=== PATIENT | female | born 1965 | race Hispanic/Latino ===

== ENCOUNTER 2022-04-03 10:36 | Emergency (ER) | payer BC ==
--- OUTSIDE RECORDS SUMMARY | 2022-04-03 10:42 | XMS REPORT | Continuity of Care Document ---
:1965 Author Organization [facility] t Address [address] [place] [address] Dr. Sheppard. [address] [place] [address] Care Team Providers Name Role Phone Jovan Aranda Primary Care Physician ROQUE CHIN Attending Clinician Unavailable Bui_Q Attending Clinician Unavailable LISETTE BARNARD Attending Clinician Unavailable Pob, [facility] Main Attending Clinician Unavailable Wendy Whyte MD Attending Clinician WENDY WHYTE Attending Clinician Unavailable Doctor Unassigned, [place] Attending Clinician Unavailable Jovan Aranda Attending Clinician Unavailable Kylie Hyde Attending Clinician Unavailable Manoj_Q Admitting Clinician Unavailable Jovan Aranda Admitting Clinician Unavailable Jose Solo Admitting Clinician Unavailable Payers Payer Name Policy Type Policy Number Effective Date Expiration Date S dasha [employer] ADVANTAGE [id number] 2021 HMO/PLUS 00:00:00 [place] [id number] 2021 2022 ADVANTAGE (HMO) 00:00:00 00:00:00 Problems Condition Condition Condition Status Onset Resolution Last Treating Co mments Source Name Details Category Date Date Treatment Clinician Date Immunodefi Immunodefi Problem Active 2021-03 V illage ciency ciency 2-24 Family disorder Disorder 00:00: Practi c 00 e Nontraumat Nontraumat Disease Active 2021-03 Last U T ic ic 03-19 Assessmen Health complete complete 00:00: t & Plan: tear of tear of 00 Formattin rotator rotator g of this cuff, left cuff, left note might be different from the original. The sutures were removed. Incision was clean, dry and intact. Benzoin was applied and Steri-Str ips were applied over the incision. . Ms. Barrera was educated on the signs of infection including increased pain, erythema, tendernes s, and drainage. Ms. Barrera verbalize yovani del cid and will notify us immediate ly if any of the symptoms are noticed Dyslipidem Dyslipidem Problem Active V illage ia ia 6-30 Family 00:00: Practic 00 e Obstructiv Obstructiv Problem Active [facility] illage e sleep e Sleep 4-04 Family apnea Apnea 00:00: Practic syndrome Syndrome 00 e Vitamin D Vitamin D Problem Active [facility] sherron deficiency Deficiency 1-25 Fa alba 00:00: Practic 00 e Diabetes Diabetes Problem Active Mederos ge mellitus Mellitus 1- Family 00:00: Practic 00 e Hypertensi Hypertensi Problem Active [facility] illage ve ve 1-21 Family disorder Disorder 00:00: Practi c 00 e Carotid Carotid Problem Active [place] artery Artery - Family stenosis Stenosis 00:00: Practi c 00 e Rheumatoid Rheumatoid Problem Active [facility] arthritis Arthritis -21 Fami ly 00:00: Practic 00 e Allergies, Adverse Reactions, Alerts Allergy Allergy Status Severity Reaction(s) Onset Inactive Treating Comm ents Source Name Type Date Date Clinician [place] Allergy Active Swelling 2021-03 [facility] n to 08 [facility] substanc 00:00: e 00 atorvast DA [facility] [place] [facility] at[facility]vast DA Active [facility] [place] [facility] Atorvast Allergy Active Swelling [facility] atin to 07-16 Health substanc 00:00: e 00 Lipitor Allergy Active Moderate Swelling [facility] age to Family substanc Practic e e NO KNOWN Drug Active Laquita ALLERGIE Class ity of [facility] Social History Social Habit Start Date Stop Date Quantity Comments Source Exposure to 2022-02-28 2022-03-10 Not sure [facility] SARS-CoV-2 (event) 00:00:00 08:34:00 Alcohol intake 2022-01-22 2022-01-22 Lifetime [facility] 00:00:00 00:00:00 non-drinker (finding) Tobacco use and 2022-01-17 2022-01-17 Smokeless tobacco [facility] exposure 00:00:00 00:00:00 non-user Sex Assigned At [birth year] [facility] 00:00:00 00:00:00 Smoking Status Start Date Stop Date Source Tobacco smoking consumption [facility] Never smoked tobacco [facility] Medications Ordered Filled Start Stop Current Ordering Indication Dosage Frequency Signature Comments Components Source Medication Medication Date Date Medication? Clinician (SIG) Name Name cephalexin 2021-03 Yes [id number] BEGIN THE [facility] (Keflex) 2- DAY AFTER Healt h 500 MG 00:00: SX, 1 capsule 00 CAPSULE PO EVERY 6 HOURS UNTIL COMPLETE inFLIXimab 2021-03 Yes Infuse [facility] (Remicade) 03-19 into a Health 100 MG 13:26: venous injection 38 catheter. rosuvastati 2021-03 Yes rosuvastat UT n (Crestor) 08 in 20 mg Heal th 20 MG 13:14: tablet tablet 30 TAKE ONE (1) TABLET(S) BY MOUTH AT BEDTIME. metFORMIN 2021-03 Yes metformin [facility] (Glucophage -08 500 mg Health ) 500 MG 13:14: tablet tablet 30 TAKE ONE (1) TABLET(S) BY MOUTH ONCE A DAY. amLODIPine 2021-03 Yes amlodipine U T (Norvasc) 5 -08 5 mg Health MG tablet 13:14: tablet 30 TAKE ONE (1) TABLET(S) BY MOUTH AT BEDTIME. sulfaSALAzi 2021-03 Yes sulfasalaz [facility] ne 08 ine 500 mg Health (Azulfidine 13:14: tablet ) 500 MG 30 TAKE ONE tablet (1) TABLET(S) BY MOUTH ONCE A DAY metoprolol 2021-03 Yes metoprolol U T succinate 03-19 succinate Healt h XL 13:14: ER 100 mg (Toprol-XL) 30 tablet,ext 100 MG 24 ended hr tablet release 24 hr TAKE ONE (1) TABLET(S) BY MOUTH TWICE A DAY. hydroCHLORO 2021-03 Yes hydrochlor [facility] thiazide 03-19 othiazide Health (HYDRODiuri 13:14: 25 mg l) 25 MG 30 tablet tablet TAKE ONE (1) TABLET(S) BY MOUTH ONCE A DAY. spironolact 2021-03 Yes spironolac UT one 08 tone 50 mg Health (Aldactone) 13:14: tablet 50 MG 30 TAKE ONE tablet (1) TABLET(S) BY MOUTH ONCE A DAY. gabapentin 2021-03 Yes gabapentin U T (Neurontin) 03-19 300 mg Health 300 MG 13:14: capsule capsule 30 TAKE ONE (1) CAPSULE BY MOUTH AT BEDTIME. losartan 2021-03 Yes losartan [facility] (Cozaar) 50 03-19 50 mg Health MG tablet 13:14: tablet 30 TAKE ONE (1) TABLET(S) BY MOUTH ONCE A DAY. cyclobenzap 2021-03 Yes cyclobenza UT rine 08 reanna 5 mg Health (Flexeril) 13:14: tablet 5 MG tablet 30 methotrexat Yes INJECT 0.5 UT e 50 MG/2ML 7-11 MLS UNDER Hea lth injection 00:00: THE SKIN 00 ONCE A WEEK. amlodipine amlodipine No amlodipine [facility] 5 mg tablet 5 mg tablet 5 mg F amily TAKE ONE TAKE ONE tablet Pract ic (1) (1) TAKE ONE e TABLET(S) TABLET(S) (1) BY MOUTH BY MOUTH TABLET(S) ONCE A DAY ONCE A DAY BY MOUTH AT BEDTIME. AT BEDTIME. ONCE A DAY AT BEDTIME. cholecalcif cholecalcif No cholecalci [facility] (vitamin (vitamin (vitamin Pra ctic D3) 1,250 D3) 1,250 D3) 1,250 e mcg (50,000 mcg (50,000 mcg unit) unit) (50,000 capsule capsule unit) TAKE ONE TAKE ONE capsule (1) (1) TAKE ONE CAPSULE(S) CAPSULE(S) (1) BY MOUTH BY MOUTH CAPSULE(S) ONCE A ONCE A BY MOUTH WEEK. WEEK. ONCE A WEEK. hydrochloro hydrochloro No hydrochlor [facility] thiazide 25 thiazide 25 othiazide Family mg tablet mg tablet 25 mg Prac tic TAKE ONE TAKE ONE tablet e (1) (1) TAKE ONE TABLET(S) TABLET(S) (1) BY MOUTH BY MOUTH TABLET(S) ONCE A DAY. ONCE A DAY. BY MOUTH ONCE A DAY. losartan 50 losartan 50 No losartan [place] mg tablet mg tablet 50 mg Fami ly TAKE ONE TAKE ONE tablet Pract ic (1) (1) TAKE ONE e TABLET(S) TABLET(S) (1) BY MOUTH BY MOUTH TABLET(S) ONCE A DAY. ONCE A DAY. BY MOUTH ONCE A DAY. metformin metformin metformin [facility] 500 mg 500 mg 500 mg Family tablet TAKE tablet TAKE tablet Practic ONE (1) ONE (1) TAKE ONE e TABLET(S) TABLET(S) (1) BY MOUTH BY MOUTH TABLET(S) ONCE A DAY. ONCE A DAY. BY MOUTH ONCE A DAY. metoprolol metoprolol metoprolol [facility] succinate succinate succinate Family ER 100 mg ER 100 mg ER 100 mg Practic tablet,exte tablet,exte tablet,ext e nded nded ended release 24 release 24 release 24 hr TAKE ONE hr TAKE ONE hr TAKE (1) (1) ONE (1) TABLET(S) TABLET(S) TABLET(S) BY MOUTH BY MOUTH BY MOUTH TWICE A TWICE A TWICE A DAY. DAY. DAY. Remicade Remicade No Remicade [facility] Pract[facility] e rosuvastati rosuvastati No rosuvastat [facility] n 20 mg n 20 mg in 20 mg Famil y tablet TAKE tablet TAKE tablet Practic ONE (1) ONE (1) TAKE ONE e TABLET(S) TABLET(S) (1) BY MOUTH AT BY MOUTH AT TABLET(S) BEDTIME. BEDTIME. BY MOUTH AT BEDTIME. spironolact spironolact No spironolac [facility] one 50 mg one 50 mg tone 50 mg Family tablet TAKE tablet TAKE tablet Practic ONE (1) ONE (1) TAKE ONE e TABLET(S) TABLET(S) (1) BY MOUTH BY MOUTH TABLET(S) ONCE A DAY. ONCE A DAY. BY MOUTH ONCE A DAY. sulfasalazi sulfasalazi No sulfasalaz [facility] ne 500 mg ne 500 mg ine 500 mg Family tablet TAKE tablet TAKE tablet Practic ONE (1) ONE (1) TAKE ONE e TABLET(S) TABLET(S) (1) BY MOUTH BY MOUTH TABLET(S) TWICE A TWICE A BY MOUTH DAY. DAY. TWICE A DAY. amlodipine amlodipine No amlodipine [facility] 5 mg tablet 5 mg tablet 5 mg F amily TAKE ONE TAKE ONE tablet Pract ic (1) (1) TAKE ONE e TABLET(S) TABLET(S) (1) BY MOUTH AT BY MOUTH AT TABLET(S) BEDTIME. BEDTIME. BY MOUTH AT BEDTIME. cholecalcif cholecalcif No cholecalci [facility] javier javierevelyne britt [facility] (vitamin (vitamin (vitamin Pra ctic D3) 1,250 D3) 1,250 D3) 1,250 e mcg (50,000 mcg (50,000 mcg unit) unit) (50,000 capsule capsule unit) TAKE ONE TAKE ONE capsule (1) (1) TAKE ONE CAPSULE(S) CAPSULE(S) (1) BY MOUTH BY MOUTH CAPSULE(S) ONCE A ONCE A BY MOUTH WEEK. WEEK. ONCE A WEEK. cyclobenzap cyclobenzap No cyclobenza [facility] rine 5 mg rine 5 mg reanna 5 mg Family tablet tablet tablet Practic e Folbee Plus Folbee Plus No Folbee [facility] 5 mg tablet 5 mg tablet Plus 5 mg Family TAKE ONE TAKE ONE tablet Pract ic (1) (1) TAKE ONE e TABLET(S) TABLET(S) (1) BY MOUTH BY MOUTH TABLET(S) ONCE A DAY. ONCE A DAY. BY MOUTH ONCE A DAY. hydrochloro hydrochloro No hydrochlor [facility] thiazide 25 thiazide 25 othiazide Family mg tablet mg tablet 25 mg Prac tic TAKE ONE TAKE ONE tablet e (1) (1) TAKE ONE TABLET(S) TABLET(S) (1) BY MOUTH BY MOUTH TABLET(S) ONCE A DAY. ONCE A DAY. BY MOUTH ONCE A DAY. losartan 50 losartan 50 No losartan [facility] mg tablet mg tablet 50 mg Fami ly TAKE ONE TAKE ONE tablet Pract ic (1) (1) TAKE ONE e TABLET(S) TABLET(S) (1) BY MOUTH BY MOUTH TABLET(S) ONCE A DAY. ONCE A DAY. BY MOUTH ONCE A DAY. metformin metformin No metformin [facility] 500 mg 500 mg 500 mg Family tablet TAKE tablet TAKE tablet Practic ONE (1) ONE (1) TAKE ONE e TABLET(S) TABLET(S) (1) BY MOUTH BY MOUTH TABLET(S) ONCE A DAY. ONCE A DAY. BY MOUTH ONCE A DAY. methotrexat methotrexat methotrexa [facility] e sodium 25 e sodium 25 te sodium Family mg/mL mg/mL 25 mg/mL Practic injection injection injection e solution solution solution INJECT 0.5 INJECT 0.5 INJECT 0.5 MLS UNDER MLS UNDER MLS UNDER THE SKIN THE SKIN THE SKIN ONCE A ONCE A ONCE A WEEK. WEEK. WEEK. metoprolol metoprolol metoprolol [facility] succinate succinate succinate Family ER 100 mg ER 100 mg ER 100 mg Practic tablet,exte tablet,exte tablet,ext e nded nded ended release 24 release 24 release 24 hr TAKE ONE hr TAKE ONE hr TAKE (1) (1) ONE (1) TABLET(S) TABLET(S) TABLET(S) BY MOUTH BY MOUTH BY MOUTH TWICE A TWICE A TWICE A DAY. DAY. DAY. Remicade Remicade No Remicade [facility] n 20 mg in 20 mg Famil y tablet TAKE tablet TAKE tablet Practic ONE (1) ONE (1) TAKE ONE e TABLET(S) TABLET(S) (1) BY MOUTH AT BY MOUTH AT TABLET(S) BEDTIME. BEDTIME. BY MOUTH AT BEDTIME. spironolact spironolact spironolac [facility] one 50 mg one 50 mg tone 50 mg Family tablet TAKE tablet TAKE tablet Practic ONE (1) ONE (1) TAKE ONE e TABLET(S) TABLET(S) (1) BY MOUTH BY MOUTH TABLET(S) ONCE A DAY. ONCE A DAY. BY MOUTH ONCE A DAY. sulfasalazi sulfasalazi sulfasalaz [facility] ne 500 mg ne 500 mg ine 500 mg Family tablet TAKE tablet TAKE tablet Practic ONE (1) ONE (1) TAKE ONE e TABLET(S) TABLET(S) (1) BY MOUTH BY MOUTH TABLET(S) ONCE A DAY ONCE A DAY BY MOUTH ONCE A DAY Sutab Sutab No Sutab [facility] 1.479-0.188 1.479-0.188 1.479-0.18 Family -0.225 gram -0.225 gram 8-0.225 Practic tablet TAKE tablet TAKE gram e DIRECTED DIRECTED tablet BY BY TAKE PHYSICIAN PHYSICIAN DIRECTED BY PHYSICIAN amlodipine amlodipine No amlodipine [facility] 5 mg tablet 5 mg tablet 5 mg F amily TAKE ONE TAKE ONE tablet Pract ic (1) (1) TAKE ONE e TABLET(S) TABLET(S) (1) BY MOUTH AT BY MOUTH AT TABLET(S) BEDTIME. BEDTIME. BY MOUTH AT BEDTIME. benzonatate benzonatate No 1capsul TID benzonatat [facility] 200 mg 200 mg e(s) e 200 mg Family capsule capsule capsule Practi c Take 1 Take 1 Take 1 e capsule 3 capsule 3 capsule 3 times a day times a day times a by oral by oral day by route as route as oral route needed for needed for as needed 10 days. 10 days. for 10 days. cholecalcif cholecalcif No cholecalci [facility] javier javier ferol Family (vitamin (vitamin (vitamin Pra ctic D3) 1,250 D3) 1,250 D3) 1,250 e mcg (50,000 mcg (50,000 mcg unit) unit) (50,000 capsule capsule unit) TAKE ONE TAKE ONE capsule (1) (1) TAKE ONE CAPSULE(S) CAPSULE(S) (1) BY MOUTH BY MOUTH CAPSULE(S) ONCE A ONCE A BY MOUTH WEEK. WEEK. ONCE A WEEK. cyclobenzap cyclobenzap No cyclobenza [facility] rine 5 mg rine 5 mg reanna 5 mg Family tablet TAKE tablet TAKE tablet Practic ONE (1) ONE (1) TAKE ONE e TABLET BY TABLET BY (1) TABLET MOUTH 3 MOUTH 3 BY MOUTH 3 TIMES PER TIMES PER TIMES PER DAY DAY DAY NEEDED. NEEDED. NEEDED. Folbee Plus Folbee Plus No Folbee [facility] 5 mg tablet 5 mg tablet Plus 5 mg Family TAKE ONE TAKE ONE tablet Pract ic (1) (1) TAKE ONE e TABLET(S) TABLET(S) (1) BY MOUTH BY MOUTH TABLET(S) ONCE A DAY. ONCE A DAY. BY MOUTH ONCE A DAY. hydrochloro hydrochloro No hydrochlor [facility] thiazide 25 thiazide 25 othiazide Family mg tablet mg tablet 25 mg Prac tic TAKE ONE TAKE ONE tablet e (1) (1) TAKE ONE TABLET(S) TABLET(S) (1) BY MOUTH BY MOUTH TABLET(S) ONCE A DAY. ONCE A DAY. BY MOUTH ONCE A DAY. losartan 50 losartan 50 No losartan [place] mg tablet mg tablet 50 mg Fami ly TAKE ONE TAKE ONE tablet Pract ic (1) (1) TAKE ONE e TABLET(S) TABLET(S) (1) BY MOUTH BY MOUTH TABLET(S) ONCE A DAY. ONCE A DAY. BY MOUTH ONCE A DAY. metformin metformin metformin [facility] 500 mg 500 mg 500 mg Family tablet TAKE tablet TAKE tablet Practic ONE (1) ONE (1) TAKE ONE e TABLET(S) TABLET(S) (1) BY MOUTH BY MOUTH TABLET(S) ONCE A DAY. ONCE A DAY. BY MOUTH ONCE A DAY. methotrexat methotrexat No methotrexa [facility] e sodium e sodium te sodium Fa alba (PF) 25 (PF) 25 (PF) 25 Practi c mg/mL mg/mL mg/mL e injection injection injection solution solution solution INJECT 0.5 INJECT 0.5 INJECT 0.5 ML(S) ML(S) ML(S) SUBCUTANEOU SUBCUTANEOU SUBCUTANEO S ONCE A S ONCE A US ONCE A WEEK. WEEK. WEEK. [facility] sodium 25 te sodium Family mg/mL mg/mL 25 mg/mL Practic injection injection injection e solution solution solution INJECT 0.5 INJECT 0.5 INJECT 0.5 MLS UNDER MLS UNDER MLS UNDER THE SKIN THE SKIN THE SKIN ONCE A ONCE A ONCE A WEEK. WEEK. WEEK. metoprolol metoprolol metoprolol [facility] succinate succinate succinate Family ER 100 mg ER 100 mg ER 100 mg Practic tablet,exte tablet,exte tablet,ext e nded nded ended release 24 release 24 release 24 hr TAKE ONE hr TAKE ONE hr TAKE (1) (1) ONE (1) TABLET(S) TABLET(S) TABLET(S) BY MOUTH BY MOUTH BY MOUTH TWICE A TWICE A TWICE A DAY. DAY. DAY. Remicade Remicade No Remicade [facility] e rosuvastati rosuvastati No rosuvastat [facility] n 20 mg n 20 mg in 20 mg Famil y tablet TAKE tablet TAKE tablet Practic ONE (1) ONE (1) TAKE ONE e TABLET(S) TABLET(S) (1) BY MOUTH AT BY MOUTH AT TABLET(S) BEDTIME. BEDTIME. BY MOUTH AT BEDTIME. spironolact spironolact No spironolac [facility] one 50 mg one 50 mg tone 50 mg Family tablet TAKE tablet TAKE tablet Practic ONE (1) ONE (1) TAKE ONE e TABLET(S) TABLET(S) (1) BY MOUTH BY MOUTH TABLET(S) ONCE A DAY. ONCE A DAY. BY MOUTH ONCE A DAY. sulfasalazi sulfasalazi No sulfasalaz [facility] ne 500 mg ne 500 mg ine 500 mg Family tablet TAKE tablet TAKE tablet Practic ONE (1) ONE (1) TAKE ONE e TABLET(S) TABLET(S) (1) BY MOUTH BY MOUTH TABLET(S) ONCE A DAY. ONCE A DAY. BY MOUTH ONCE A DAY. Sutab Sutab No Sutab [facility] 1.479-0.188 1.479-0.188 1.479-0.18 Family -0.225 gram -0.225 gram 8-0.225 Practic tablet TAKE tablet TAKE gram e DIRECTED DIRECTED tablet BY BY TAKE PHYSICIAN PHYSICIAN DIRECTED BY PHYSICIAN Tamiflu 75 Tamiflu 75 No 1capsul BID Tamiflu 75 [facility] mg capsule mg capsule e(s) mg capsule Family Take 1 Take 1 Take 1 Practic capsule capsule capsule e twice a day twice a day twice a by oral by oral day by route for 5 route for 5 oral route days. days. for 5 days. tramadol 50 tramadol 50 No tramadol [place] mg tablet mg tablet 50 mg Fami ly TAKE ONE TAKE ONE tablet Pract ic (1) (1) TAKE ONE e TABLET(S) TABLET(S) (1) BY MOUTH BY MOUTH TABLET(S) TWICE A DAY TWICE A DAY BY MOUTH NEEDED NEEDED TWICE A FOR PAIN. FOR PAIN. DAY NEEDED FOR PAIN. amlodipine amlodipine No amlodipine [facility] 5 mg tablet 5 mg tablet 5 mg F amily TAKE ONE TAKE ONE tablet Pract ic (1) (1) TAKE ONE e TABLET(S) TABLET(S) (1) BY MOUTH AT BY MOUTH AT TABLET(S) BEDTIME. BEDTIME. BY MOUTH AT BEDTIME. cholecalcif cholecalcif No cholecalci [facility] javier javier ferol Family (vitamin (vitamin (vitamin Pra ctic D3) 1,250 D3) 1,250 D3) 1,250 e mcg (50,000 mcg (50,000 mcg unit) unit) (50,000 capsule capsule unit) TAKE ONE TAKE ONE capsule (1) (1) TAKE ONE CAPSULE(S) CAPSULE(S) (1) BY MOUTH BY MOUTH CAPSULE(S) ONCE A ONCE A BY MOUTH WEEK. WEEK. ONCE A WEEK. cyclobenzap cyclobenzap No cyclobenza [facility] rine 5 mg rine 5 mg reanna 5 mg Family tablet TAKE tablet TAKE tablet Practic ONE (1) ONE (1) TAKE ONE e TABLET BY TABLET BY (1) TABLET MOUTH 3 MOUTH 3 BY MOUTH 3 TIMES PER TIMES PER TIMES PER DAY DAY DAY NEEDED. NEEDED. NEEDED. Folbee Plus Folbee Plus No Folbee [facility] 5 mg tablet 5 mg tablet Plus 5 mg Family TAKE ONE TAKE ONE tablet Pract ic (1) (1) TAKE ONE e TABLET(S) TABLET(S) (1) BY MOUTH BY MOUTH TABLET(S) ONCE A DAY. ONCE A DAY. BY MOUTH ONCE A DAY. hydrochloro hydrochloro No hydrochlor [facility] thiazide 25 thiazide 25 othiazide Family mg tablet mg tablet 25 mg Prac tic TAKE ONE TAKE ONE tablet e (1) (1) TAKE ONE TABLET(S) TABLET(S) (1) BY MOUTH BY MOUTH TABLET(S) ONCE A DAY. ONCE A DAY. BY MOUTH ONCE A DAY. hydrocodone hydrocodone No hydrocodon [facility] 5 5 e 5 Family mg-acetamin mg-acetamin mg-acetami Practic ophen 325 ophen 325 nophen 325 e mg tablet mg tablet mg tablet TAKE ONE TAKE ONE TAKE ONE (1) OR TWO (1) OR TWO (1) OR TWO (2) (2) (2) TABLET(S) TABLET(S) TABLET(S) BY MOUTH BY MOUTH BY MOUTH EVERY SIX EVERY SIX EVERY SIX HOURS IF HOURS IF HOURS IF NEEDED FOR NEEDED FOR NEEDED FOR SEVERE PAIN SEVERE PAIN SEVERE FOR UP TO 7 FOR UP TO 7 PAIN FOR DAYS. DAYS. UP TO 7 DAYS. losartan 50 losartan 50 No losartan [place] mg tablet mg tablet 50 mg Fami ly TAKE ONE TAKE ONE tablet Pract ic (1) (1) TAKE ONE e TABLET(S) TABLET(S) (1) BY MOUTH BY MOUTH TABLET(S) ONCE A DAY. ONCE A DAY. BY MOUTH ONCE A DAY. metformin metformin No metformin [facility] 500 mg 500 mg 500 mg Family tablet TAKE tablet TAKE tablet Practic ONE (1) ONE (1) TAKE ONE e TABLET(S) TABLET(S) (1) BY MOUTH BY MOUTH TABLET(S) ONCE A DAY. ONCE A DAY. BY MOUTH ONCE A DAY. methotrexat methotrexat methotrexa [facility] e sodium e sodium te sodium Fa alba (PF) 25 (PF) 25 (PF) 25 Practi c mg/mL mg/mL mg/mL e injection injection injection solution solution solution INJECT 0.5 INJECT 0.5 INJECT 0.5 ML(S) ML(S) ML(S) SUBCUTANEOU SUBCUTANEOU SUBCUTANEO S ONCE A S ONCE A US ONCE A WEEK. WEEK. WEEK. metoprolol metoprolol metoprolol [facility] succinate succinate succinate Family ER 100 mg ER 100 mg ER 100 mg Practic tablet,exte tablet,exte tablet,ext e nded nded ended release 24 release 24 release 24 hr TAKE ONE hr TAKE ONE hr TAKE (1) (1) ONE (1) TABLET(S) TABLET(S) TABLET(S) BY MOUTH BY MOUTH BY MOUTH ONCE A DAY. ONCE A DAY. ONCE A DAY. rosuvastati rosuvastati No 1 Q1D rosuvastat [facility] n 20 mg n 20 mg in 20 mg Famil y tablet Take tablet Take tablet Practic 1 tablet 1 tablet Take 1 e every day every day tablet by oral by oral every day route for route for by oral 90 days. 90 days. route for 90 days. spironolact spironolact spironolac [facility] one 50 mg one 50 mg tone 50 mg Family tablet TAKE tablet TAKE tablet Practic ONE (1) ONE (1) TAKE ONE e TABLET(S) TABLET(S) (1) BY MOUTH BY MOUTH TABLET(S) ONCE A DAY. ONCE A DAY. BY MOUTH ONCE A DAY. sulfasalazi sulfasalazi sulfasalaz [facility] ne 500 mg ne 500 mg ine 500 mg Family tablet TAKE tablet TAKE tablet Practic ONE (1) ONE (1) TAKE ONE e TABLET(S) TABLET(S) (1) BY MOUTH BY MOUTH TABLET(S) ONCE A DAY. ONCE A DAY. BY MOUTH ONCE A DAY. tramadol 50 tramadol 50 tramadol [facility] mg tablet mg tablet 50 mg Fami ly TAKE ONE TAKE ONE tablet Pract ic (1) (1) TAKE ONE e TABLET(S) TABLET(S) (1) BY MOUTH BY MOUTH TABLET(S) TWICE A DAY TWICE A DAY BY MOUTH NEEDED NEEDED TWICE A FOR PAIN. FOR PAIN. DAY NEEDED FOR PAIN. Immunizations Ordered Immunization Filled Immunization Date Status Commen ts Source Name Name Pneumococcal Pneumococcal 2021-09-08 Completed [facility] conjugate PCV20, conjugate PCV20, 10:35:00 Pr actice polysaccharide [id number] polysaccharide [id number] conjugate, adjuvant, conjugate, adjuvant, PF PF Pneumococcal Pneumococcal 2021-09-08 Completed [facility] conjugate PCV20, conjugate PCV20, 10:35:00 Pr actice polysaccharide [id number] polysaccharide [id number] conjugate, adjuvant, conjugate, adjuvant, PF PF Pneumococcal Pneumococcal 2021-09-08 Completed [facility] conjugate PCV20, conjugate PCV20, 10:35:00 Pr actice polysaccharide [id number] polysaccharide [id number] conjugate, adjuvant, conjugate, adjuvant, PF PF zoster recombinant zoster recombinant 2021-09-08 Completed [facility] Family 10:26:00 Practice zoster recombinant zoster recombinant 2021-09-08 Completed [facility] Family 10:26:00 Practice zoster recombinant zoster recombinant 2021-09-08 Completed [facility] Family 10:26:00 Practice Tdap Tdap 2021-06-13 Completed [facility] Family 16:47:00 Practice Tdap Tdap 2021-06-13 Completed [facility] Family 16:47:00 Practice Tdap Tdap 2021-06-13 Completed [facility] Family 16:47:00 Practice Tdap Tdap 2021-06-13 Completed [facility] Family 16:47:00 Practice zoster recombinant zoster recombinant 2021-06-13 Completed [facility] Family 16:44:00 Practice zoster recombinant zoster recombinant 2021-06-13 Completed [facility] Family 16:44:00 Practice zoster recombinant zoster recombinant 2021-06-13 Completed [facility] Family 16:44:00 Practice zoster recombinant zoster recombinant 2021-06-13 Completed [facility] Family 16:44:00 Practice COVID-19, mRNA, COVID-19, mRNA, 2020-06-04 Completed [facility] LNP-S, PF, 100 LNP-S, PF, 100 00:00:00 Practi ce mcg/0.5 mL dose mcg/0.5 mL dose (Moderna) (Moderna) COVID-19, mRNA, COVID-19, mRNA, 2020-06-04 Completed [facility] Family LNP-S, PF, 100 LNP-S, PF, 100 00:00:00 Practi ce mcg/0.5 mL dose mcg/0.5 mL dose (Moderna) (Moderna) COVID-19, mRNA, COVID-19, mRNA, 2020-06-04 Completed [facility] Family LNP-S, PF, 100 LNP-S, PF, 100 00:00:00 Practi ce mcg/0.5 mL dose mcg/0.5 mL dose (Moderna) (Moderna) COVID-19, mRNA, COVID-19, mRNA, 2020-06-04 Completed [facility] Family LNP-S, PF, 100 LNP-S, PF, 100 00:00:00 Practi ce mcg/0.5 mL dose mcg/0.5 mL dose (Moderna) (Moderna) COVID-19, mRNA, COVID-19, mRNA, 2020-05-10 Completed [facility] Family LNP-S, PF, 100 LNP-S, PF, 100 00:00:00 Practi ce mcg/0.5 mL dose mcg/0.5 mL dose (Moderna) (Moderna) COVID-19, mRNA, COVID-19, mRNA, 2020-05-10 Completed [facility] age Family LNP-S, PF, 100 LNP-S, PF, 100 00:00:00 Practi ce mcg/0.5 mL dose mcg/0.5 mL dose (Moderna) (Moderna) COVID-19, mRNA, COVID-19, mRNA, 2020-05-10 Completed [facility] LNP-S, PF, 100 LNP-S, PF, 100 00:00:00 Practi ce mcg/0.5 mL dose mcg/0.5 mL dose (Moderna) (Moderna) COVID-19, mRNA, COVID-19, mRNA, 2020-05-10 Completed [facility] LNP-S, PF, 100 LNP-S, PF, 100 00:00:00 Practi ce mcg/0.5 mL dose mcg/0.5 mL dose (Moderna) (Moderna) Vital Signs Vital Name Observation Time Observation Value Comments Source Height 2022 00:00:00 63 [in_i] [facility] BMI (Body Mass 2022 00:00:00 43.2 kg/m2 [facility] Family Index) Practice Body Weight 2022 00:00:00 244 [lb_av] [facility] BP Diastolic 2022-02-10 00:00:00 72 mm[Hg] [facility] Height 2022-02-10 00:00:00 63 [in_i] [facility] BMI (Body Mass 2022-02-10 00:00:00 43.2 kg/m2 [facility] BP Systolic 2022-02-10 00:00:00 131 mm[Hg] [facility] Body Weight 2022-02-10 00:00:00 244 [lb_av] [facility] Height 2021-12-07 00:00:00 63 [in_i] [facility] BMI (Body Mass 2021-12-07 00:00:00 43.2 kg/m2 [facility] Body Weight 2021-12-07 00:00:00 244 [lb_av] [facility] BP Diastolic 2021-09-08 00:00:00 76 mm[Hg] [facility] Height 2021-09-08 00:00:00 63 [in_i] [facility] BMI (Body Mass 2021-09-08 00:00:00 43.1 kg/m2 [facility] BP Systolic 2021-09-08 00:00:00 106 mm[Hg] [facility] Body Weight 2021-09-08 00:00:00 243.2 [lb_av] [facility] BP Diastolic 2021-06-13 00:00:00 78 mm[Hg] [facility] Height 2021-06-13 00:00:00 63 [in_i] [facility] BMI (Body Mass 2021-06-13 00:00:00 43.8 kg/m2 [facility] BP Systolic 2021-06-13 00:00:00 111 mm[Hg] [facility] Body Weight 2021-06-13 00:00:00 247 [lb_av] [facility] BP Diastolic 2021-04-01 00:00:00 81 mm[Hg] [facility] Height 2021-04-01 00:00:00 63 [in_i] [facility] BMI (Body Mass 2021-04-01 00:00:00 43.6 kg/m2 [facility] BP Systolic 2021-04-01 00:00:00 117 mm[Hg] [facility] Body Weight 2021-04-01 00:00:00 246 [lb_av] [facility] Procedures Procedure Date / Time Performing Clinician Source Performed ASSIGNMENT OF BENEFITS 2021-11-04 18:33:20 Doctor Unassigned, No [facility] MAMMO, screening, 2021-06-13 00:00:00 [facility] alba digital, bilateral Practice MAMMO, screening, 2021-04-01 00:00:00 [facility] Section [facility] Partial Hysterectomy [facility] Plan of Care Planned Activity Planned Date Details Comments Source Diagnostic Test Pending 2022 HbA1c (hemoglobin [facility] 00:00:00 A1c), blood [code Practice = HbA1c (hemoglobin A1c), blood] Future Appointment 2022-05-31 Jovan Aranda, [address] [place] 00:00:[address], [place] [address] Instructions [facility] Encounters Start End Encounter Admission Attending Care Care Encounter Source Date/Time Date/Time Type Type Clinicians Facility Department ID 2022-03-07 Outpatient [facility] [id number] [place] 07:50:33 [id number] [facility] 2022-02-25 Outpatient [facility] [id number] [place] 08:37:37 [id number] [facility] 2022-01-26 Outpatient [facility] [id number] [place] 10:17:39 [id number] [facility] 2022-01-18 Outpatient [facility] [id number] [place] 14:47:55 [id number] [facility] 2022-01-17 Outpatient [facility] [id number] [place] 13:01:07 [id number] [facility] 2022-01-16 Outpatient [facility] [id number] [place] 13:00:38 [id number] [facility] 2022-01-13 Outpatient [facility] [id number] [place] 08:58:48 [id number] [facility] 2021-12-14 Outpatient [facility] [id number] [place] 10:01:45 [id number] [facility] 2021-12-13 Outpatient [facility] [id number] [place] 13:49:47 [id number] [facility] 2022-04-21 2022-04-21 Outpatient ELSY [facility] [id number] [place] 09:15:00 09:15:00 [facility] 2022-03-10 2022-03-10 Office Elsy [facility] [id number] [place] 08:45:00 08:53:22 Visit Roque VERA [id number] H [facility] [id number] [place] 0 [id number] 2022 2022 Outpatient Bui_Q VFP VFP [id number] [facility] 00:00:00 00:00:00 [id number] Family Practic e 2022 2022 Outpatient Bui_Q VFP VFP [id number] [facility] 00:00:00 00:00:00 [id number] Family Practic e 2022 2022 Outpatient Bui_Q VFP VFP [id number] [facility] 00:00:00 00:00:00 [id number] Family Practic e 2022 2022 Outpatient Bui_Q VFP VFP [id number] [facility] 00:00:00 00:00:00 [id number] Family Practic e 2022 2022 Jovan Reynolds VFP - [id number] [facility] 00:00:00 00:00:00 MD Manoj: [facility] [address] [facility] - [place] [address] [place], [place] [address] , Ph. 2022-02-28 2022-02-28 Outpatient ELSY [facility] [id number] [place] 13:00:00 13:00:00 [facility] 2022-02-27 2022-02-27 Outpatient GARETT [facility] [id number] [place] 14:00:00 14:00:00 LISETTE Guerra h 2022-02-23 2022-02-23 Outpatient Bui_Q VFP VFP [id number] [facility] 00:00:00 00:00:00 [id number] Family Practic e 2022-02-23 2022-02-23 Outpatient Bui_Q VFP VFP [id number] [facility] 00:00:00 00:00:00 [id number] Family Practic e 2022-02-10 2022-02-10 Outpatient Bui_Q VFP VFP [id number] [facility] 00:00:00 00:00:00 [id number] Family Practic e 2022-02-10 2022-02-10 Cristy VFP [place] - [id number] V illage 00:00:00 00:00:00 [facility] nkechi soto MD: [place] [id number] [place] - [place] [address], [place] [address] , Ph. 2022-01-17 2022-01-17 [facility] [id number] [place] 13:30:00 14:26:53 E, LISETTEAshlie Dodd h 2022-01-17 2022-01-17 Outpatient [facility] [id number] [place] 13:30:00 13:30:00 Health 2022-01-13 2022-01-13 Outpatient [facility] [id number] [place] 09:30:00 09:30:00 E, LISETTE Yousif garret 2022-01-09 2022-01-09 Outpatient Bui_Q VFP VFP [id number] - [facility] 00:00:00 00:00:00 [id number] Family Practic e 2021-12-07 2021-12-07 Outpatient Bui_Q VFP VFP [id number] [facility] 00:00:00 00:00:00 [id number] Family Practic e 2021-12-07 2021-12-07 Jovan Reynolds VFP [place] - [id number] [facility] 00:00:00 00:00:00 MD Manoj: [facility] Famil y [address] Medical - Practi c [place] [address] [place] [address] [address] , Ph. 2021-12-05 2021-12-05 Outpatient Bui_Q VFP VFP [id number] [facility] 00:00:00 00:00:00 [id number] Family Practic e 2021-11-04 2021-11-04 Pneumatic Systems Operator Nettie, Zoltan Lab Main [facility] [id number] Univers 13:30:00 13:45:00 Visit Wendy WhyteNILESH 350.1.1 3.10 ity of [id number] PROF[place] [id number] [place] [address] [address] [facility] 2021-11-04 2021-11-04 Outpatient [facility] [id number] Univers 13:30:00 13:30:[address] [facility] 2021-11-04 2021-11-04 Orders Doctor KYLIE [id number] Univers 00:00:00 00:00:00 Only Unassigned, JESSICA [id number] ity of [place] [facility] [id number] Tristan as [id number] [address] 2021-10-05 2021-10-05 Outpatient Bui_Q VFP VFP [id number] [facility] 00:00:00 00:00:00 [id number] Family Practic e 2021-09-28 2021-09-28 Outpatient Bui_Q VFP VFP [id number] [facility] 00:00:00 00:00:00 [id number] Family Practic e 2021-09-27 2021-09-27 Outpatient Bui_Q VFP VFP [id number] [facility] 10:31:00 10:31:00 [id number] Family Practic e 2021-09-24 2021-09-24 Outpatient Bui_Q VFP VFP [id number] [facility] 03:30:00 03:30:00 [id number] Family Practic e 2021-09-19 2021-09-19 Outpatient Bui_Q VFP VFP [id number] [facility] 01:48:00 01:48:00 [id number] Family Practic e 2021-09-08 2021-09-08 Outpatient Bui_Q VFP VFP [id number] [facility] 02:44:00 02:44:00 [id number] Family Practic e 2021-09-08 2021-09-08 Jovan Reynolds VFP [place] - [id number] Village 00:00:00 00:00:00 MD Manoj: [facility] Famil y [address] Medical - Practi c [place] [address] [facility], [address] [address] , Ph. 2021-08-15 2021-08-15 Outpatient EL ArandaJovan HCAPM BREE [id number] [id number] [facility] 08:00:00 08:00:00 62 [facility] 2021-07-22 2021-07-22 Outpatient EL Aranda, Jovan HCAPM BREE LA00 [id number] [facility] 08:00:00 08:00:00 06 [facility] 2021-07-01 2021-07-01 Outpatient Bui_Q VFP VFP [id number] [facility] 03:13:00 03:13:00 [id number] Family Practic e 2021-06-20 2021-06-20 Outpatient Bui_Q VFP VFP [id number] [facility] 07:50:00 07:50:00 [id number] Family Practic e 2021-06-13 2021-06-13 Outpatient Bui_Q VFP VFP [id number] [facility] 04:46:00 04:46:00 [id number] Family Practic e 2021-06-13 2021-06-13 Jovan Reynolds VFP [place] - [id number] [facility] 00:00:00 00:00:00 MD Manoj: [facility] Famil y [address] Medical - Practi c [place] [address] [facility], [address] [address] , Ph. 2021-05-03 2021-05-03 Outpatient Bui_Q VFP VFP [id number] [facility] 08:43:00 08:43:00 [id number] Family Practic e 2021-05-03 2021-05-03 Outpatient Bui_Q VFP VFP [id number] [facility] 08:43:00 08:43:00 [id number] Family Practic e 2021-04-25 2021-04-25 Outpatient Bui_Q VFP VFP [id number] [facility] 09:22:00 09:22:00 [id number] Family Practic e 2021-04-14 2021-04-14 Outpatient Bui_Q VFP VFP [id number] [facility] 03:31:00 03:31:00 [id number] Family Practic e 2021-04-05 2021-04-05 Outpatient Bui_Q VFP VFP [id number] [facility] 01:20:00 01:20:00 [id number] Family Practic e 2021-04-05 2021-04-05 Outpatient Bui_Q VFP VFP [id number] [facility] 01:20:00 01:20:00 [id number] Family Practic e 2021-04-05 2021-04-05 Outpatient Bui_Q VFP VFP [id number] - [facility] 01:20:00 01:20:00 [id number] Family Practic e 2021-04-01 2021-04-01 Outpatient Bui_Q VFP VFP [id number] - [facility] 12:14:00 12:14:00 [id number] Family Practic e 2021-04-01 2021-04-01 Outpatient Bui_Q VFP VFP [id number] [facility] 08:34:00 08:34:00 [id number] Family Practic e 2021-04-01 2021-04-01 Emelia VFP [place] - [id number] V illage 00:00:00 00:00:00 [facility] Sp, Medical - Prac tic PERIPATOLOGIST: [address] [facility], [address], [place] [address] , Ph. 2021-03-31 2021-03-31 Outpatient Bui_Q VFP VFP [id number] [facility] 02:08:00 02:08:00 [id number] Family Practic e 2021-03-29 2021-03-29 Outpatient Bui_Q VFP VFP [id number] - [facility] 10:52:00 10:52:00 [id number] Family Practic e 2020-07-23 2020-07-23 Outpatient Mary Ellen Kylie [facility] RADI [id number] [facility] 10:00:00 10:00:00 [id number] [facility] Results Test Description Test Time Test Comments Results Result [facility] e Comments - NM MYOCRD SPECT 2018-07-16 FAX: Jose Hayden R/S MULT 15:23:00 Ashlie LU [phone] Camps: PM St: REG FAX: Kylie Remy [phone] Name: ELIE BARRERA [place] : 1965 Age/S: 53/F [address] [place] Unit #: [id number] Loc: [place] [address] Phys: Kylie Hyde MD Acct: [id number] Dis Date: Status: REG CLI PHONE #: [phone] Exam Date: 07/16/2018 1033 FAX #: Reason: CHEST PAIN UNSPECIFIED EXAMS: CPT: [id number] NM MYOCRD SPECT R/S MULT [id number] SPECT myocardial perfusion study with gated wall motion and ejection fraction INDICATION: Chest pain LOCATION: T18 Resting images were obtained after administration of 10 mCi Tc-99m sestamibi and stress images were obtained after administration of 30 mCi Tc-99m sestamibi, and 0.4mg Lexiscan. PERFUSION STUDY Normal distribution of radionuclide throughout the left ventricular wall. No evidence of ischemia, scar or infarct. GATED STUDY Normal wall motion , with a left ventricular ejection fraction of 62%. IMPRESSION: Normal study. Ejection fraction 62%. at 1523 Reported and signed by: Kylie Evans M.D. CC: Jose Solo MD; Kylie Hyde MD Technologist: WANDY Cervantes Transcribed Date/Time/By: 07/16/2018 (1523) :Wilfredo Orig Print D/T: S: 07/16/2018 (1525) PAGE 1 Signed Report
--- NOTE | 2022-04-03 12:36 | RAD REPORT ---
EXAM DESCRIPTION: RAD - Ankle Right 3 View - 04/03/2022 12:13 pm CLINICAL HISTORY: PAIN COMPARISON: No comparisons FINDINGS: Moderate soft tissue swelling affects the ankle. Small calcaneal spurs are present. No acu te fracture or dislocation.
--- NOTE | 2022-04-03 12:56 | ER ---
Nurse's Notes [facility] Name: Radha Barrera Age: 57 yrs Sex: Female : 1965 Arrival Date: 04/03/2022 Time: 10:39 Bed 12 Private MD: Diagnosis: Pain in right ankle and joints of right foot;Sprain of unspecified ligament of right ankle Presentation: 04/03 10:56 Chief complaint: Patient states: R ankle pain after rolling ankle while getting out of truck yesterday. Coronavirus screen: Client denies travel out of the [place] in the last 14 days. Ebola Screen: Patient denies exposure to infectious person. Patient denies travel to an Ebola-affected area in the 21 days before illness onset. Initial Sepsis Screen: Does the patient meet any 2 criteria? No. Patient's initial sepsis screen is negative. Does the patient have a suspected source of infection? No. Patient's initial sepsis screen is negative. Risk Assessment: Do you want to hurt yourself or someone else? Patient reports no desire to harm self or others. Onset of symptoms was April 02, 2022. 10:56 Method Of Arrival: Wheelchair ss 10:56 Acuity: BONY 4 ss PLANT PROTECTION GUARD: 10:57 LMP N/A - Hysterectomy ss Historical: - Allergies: 10:57 valsartan; ss 10:57 Lipitor; ss - Home Meds: 10:57 Vitamin D [Active]; CPAP at night [Active]; rosuvastatin 20 mg oral cpSP 1 cap once ss daily [Active]; metformin 500 mg Oral Tb24 1 tab once daily [Active]; amlodipine 5 mg tab 1 tab once daily [Active]; spironolactone 50 mg Oral tab 1 tab once daily [Active]; metoprolol succinate 100 mg oral Tb24 1 tab once daily [Active]; hydrochlorothiazide 25 mg Oral tab 1 tab once daily [Active]; sulfasalazine 500 mg Oral tab 1 tab twice a day [Active]; losartan 50 mg oral tab 1 tab once daily [Active]; Methotrexate (Anti-Rheumatic) 2.5 mg Oral tab 1 tab once wkly [Active]; - PMHx: 10:57 Hypertensive disorder; pre diabetic; ss - PSHx: 10:57 L shoulder repair; section; hysterectomy; ss - Immunization history:: Client reports receiving the 2nd dose of the Covid vaccine. - Social history:: Smoking status: Patient denies any tobacco usage or history of. Assessment: 11:17 General: Appears in no apparent distress. comfortable, Behavior is calm, cooperative. ss Pain: Complains of pain in R ankle L shoulder Pain currently is 6 out of 10 on a pain scale. Quality of pain is described as aching, tender, Pain began Is continuous. Vital Signs: 10:56 BP 137 / 79; Pulse 94; Resp 16; Temp 97.5(TE); Pulse Ox 99% on R/A; Weight 111.13 kg; ss Height 5 ft. 3 in. (160.02 cm); Pain 6/10; 10:56 Body Mass Index 43.40 (111.13 kg, 160.02 cm) ED Course: 10:39 Patient arrived in ED. mr 10:57 Triage completed. ss 10:57 Arm band placed on right wrist. ss 10:58 Dennis Madrigal DO is Attending Physician. ms3 11:04 Soumya Jang FNP-C is PHCP. snw 11:16 Paola Cruz, GALINA is Primary Nurse. ss 12:15 Ankle Right 3 View XRAY In Process Unspecified. EDMS 12:55 Lester Alston MD is Referral Physician. ms3 12:55 Referral Physician role handed off by Lester Alston MD ms3 Administered Medications: No medications were administered Outcome: 12:56 Discharge ordered by . ms3 13:13 Patient left the ED. iw Signatures: Dispatcher [employer] EDMS Soumya Jang FNP-C MOTOR VEHICLE SALESPERSON-Csn FahadSammi Rose Marie Parmar RN RN Paola Cruz, GALINA RN Dennis Madrigal DO DO ms3 Corrections: (The following items were deleted from the chart) 11:02 10:57 Allergies: No Known Allergies; [facility] 11: 10:57 Allergies: No Known Allergies; [facility] 11: 10:57 Home Meds: None; [facility] 11: 10:57 PMHx: None; [facility] 11: 10:57 PMHx: CPAP; [facility] 11: 10:57 PMHx: Vitamin D; [facility] 11: 10:57 PSHx: None; ss ss 11:02 10:57 PSHx: section; ss ss
--- NOTE | 2022-04-03 12:56 | EDPHYS ---
Physician Documentation [facility] Name: Radha Barrera Age: 57 yrs Sex: Female : 1965 Arrival Date: 04/03/2022 Time: 10:39 Bed 12 Private MD: ED Physician Dennis Madrigal HPI: 04/03 11:10 This 57 yrs old Female presents to ER via Wheelchair with complaints of Ankle ms3 Injury. 11:10 57-year-old female with past medical history of hypertension, rheumatoid arthritis ms3 presents for 08/19, throbbing, right ankle pain that began after twisting her ankle when getting out of her truck yesterday. Patient states pain is worse with walking. Patient denies alleviating factors.. SECY: 10:57 LMP N/A - Hysterectomy ss Historical: - Allergies: 10:57 valsartan; ss 10:57 Lipitor; ss - Home Meds: 10:57 Vitamin D [Active]; CPAP at night [Active]; rosuvastatin 20 mg oral cpSP 1 cap once ss daily [Active]; metformin 500 mg Oral Tb24 1 tab once daily [Active]; amlodipine 5 mg tab 1 tab once daily [Active]; spironolactone 50 mg Oral tab 1 tab once daily [Active]; metoprolol succinate 100 mg oral Tb24 1 tab once daily [Active]; hydrochlorothiazide 25 mg Oral tab 1 tab once daily [Active]; sulfasalazine 500 mg Oral tab 1 tab twice a day [Active]; losartan 50 mg oral tab 1 tab once daily [Active]; Methotrexate (Anti-Rheumatic) 2.5 mg Oral tab 1 tab once wkly [Active]; - PMHx: 10:57 Hypertensive disorder; pre diabetic; ss - PSHx: 10:57 L shoulder repair; section; hysterectomy; ss - Immunization history:: Client reports receiving the 2nd dose of the Covid vaccine. - Social history:: Smoking status: Patient denies any tobacco usage or history of. ROS: 11:10 Constitutional: Negative for fever, and chills. Neck: Negative for injury, pain, and ms3 swelling, Cardiovascular: Negative for chest pain, and palpitations. Respiratory: Negative for shortness of breath, cough, wheezing, and pleuritic chest pain, Abdomen/GI: Negative for abdominal pain, nausea, vomiting, diarrhea, and constipation. 11:10 MS/extremity: Positive for injury or acute deformity, tenderness. 11:10 All other systems are negative. Exam: 11:10 Constitutional: This is a well developed, well nourished patient who is awake, alert, ms3 and in no acute distress. Head/Face: Normocephalic, atraumatic. Chest/axilla: Normal chest wall appearance and motion. Nontender with no deformity. Cardiovascular: Regular rate and rhythm with a normal S1 and S2. No gallops, murmurs, or rubs. Normal PMI, no JVD. No pulse deficits. Respiratory: Lungs have equal breath sounds bilaterally, clear to auscultation and percussion. No rales, rhonchi or wheezes noted. No increased work of breathing, no retractions or nasal flaring. Abdomen/GI: Soft, non-tender, with normal bowel sounds. No distension or tympany. No guarding or rebound. No evidence of tenderness throughout. 11:10 Skin: Warm, dry with normal turgor. Normal color with no rashes, no lesions, and no evidence of cellulitis. 11:10 Musculoskeletal/extremity: Extremities: noted in the Right ankle pain: pain, swelling, tenderness. Vital Signs: 10:56 BP 137 / 79; Pulse 94; Resp 16; Temp 97.5(TE); Pulse Ox 99% on R/A; Weight 111.13 kg; ss Height 5 ft. 3 in. (160.02 cm); Pain 6/10; 10:56 Body Mass Index 43.40 (111.13 kg, 160.02 cm) MDM: 11:07 Patient medically screened. ms3 11:10 Differential diagnosis: fracture, sprain, Contusion. ms3 19:24 Data reviewed: vital signs, nurses notes, radiologic studies, plain films, and as a ms3 result, I will discharge patient. Consideration of Admission/Observation Escalation of care including admission/observation considered. No emergent medical condition necessitating admission found at this time. Independent interpretation of the following test(s) in the Emergency Department X-Ray: My interpretation is My preliminary viewing of x-ray did not reveal fracture. Historians other than the Patient: Spouse/Significant Other: Patient's . Counseling: I had a detailed discussion with the patient and/or guardian regarding: the historical points, exam findings, and any diagnostic results supporting the discharge/admit diagnosis, radiology results, the need for outpatient follow up, to return to the emergency department if symptoms worsen or persist or if there are any questions or concerns that arise at home. ED course: Discussed x-ray final report with patient and her . They understand and agree with plan. Patient to follow-up with her orthopedist in 2 to 3 days. Discussed with the patient and her if pain is persistent in 1 week patient may need additional imaging. Patient and her understand agree with plan. Return precautions discussed to include worsening symptoms, or any other concerns.. 04/03 11:08 Order name: Ankle Right 3 View XRAY; Complete Time: 12:52 ms3 Administered Medications: No medications were administered Disposition Summary: 04/03/22 12:56 Discharge Ordered Location: Home ms3 Condition: Stable ms3 Diagnosis - Pain in right ankle and joints of right foot ms3 - Sprain of unspecified ligament of right ankle ms3 Followup: ms3 - With: Lester Alston MD - When: 2 - 3 days - Reason: Recheck today's complaints Followup: ms3 - With: Private Physician - When: 2 - 3 days - Reason: Recheck today's complaints Discharge Instructions: - Discharge Summary Sheet ms3 - Musculoskeletal Pain ms3 Forms: - Medication Reconciliation Form ms3 - Thank You Letter ms3 - Antibiotic Education ms3 - Prescription Opioid Use ms3 Signatures: Dispatcher [employer] Paola Conn RN RN ss Sims, Marcus, DO DO ms3 Corrections: (The following items were deleted from the chart) : 10:57 Allergies: No Known Allergies; [facility] : 10:57 Allergies: No Known Allergies; [facility] : 10:57 Home Meds: None; [facility] : 10:57 PMHx: None; [facility] : 10:57 PMHx: CPAP; [facility] : 10:57 PMHx: Vitamin D; [facility] 11: 10:57 PSHx: None; [facility] 11: 10:57 PSHx: section; [facility]
[2022-04-03 13:54] VITALS: BP 137/79; TEMP 97.5; O2SAT 99
== END 2022-04-03 13:13 | disposition home or self-care (01) ==
LOC: ER 10:36
DX: S93.401A Sprain of unspecified ligament of right ankle, initial encounter (principal)
CPT/HCPCS: 99282